=== PATIENT | female | born 1990 | race African-American/Black ===

== ENCOUNTER 2016-04-27 20:58 | Emergency (ER) | payer MEDICAID ==
--- NOTE | 2016-04-28 00:18 | ER Document Report ---
ED Skin Rash/Insect Bite/Abscs - General Mode of Arrival: Ambulatory Information source: Patient TRAVEL OUTSIDE OF THE [place] IN LAST 30 DAYS: No - HPI Patient complains to provider of: Possible insect bite Onset: Yesterday - General Chief Complaint: Insect Bite Stated Complaint: insect bite Notes: Patient is a 25 year old female who presents to the emergency department complaining of an insect bite on her upper right arm. Patient states that she woke up yesterday morning and noticed she was lightheaded and there was a small bite, throughout the day the area became red and swollen and patient became nauseated. Patient reports that she does notice spiders around her home but that they usually because she sprays insecticide which she has not done recently. Patient has had a tetanus shot within the last year. ([facility]) - Related Data Allergies/Adverse Reactions: No Known Allergies Allergy (Verified 02/12/16 12:26) Past Medical History - General Information source: Patient - Social History Smoking Status: Unknown if Ever Smoked Family History: Reviewed & Not Pertinent, Hypertension, Malignancy - Immunizations Immunizations up to date: Yes Hx Diphtheria, Pertussis, Tetanus Vaccination: Yes - 2015 Review of Systems - Review of Systems Constitutional: No symptoms reported EENT: No symptoms reported Cardiovascular: See HPI, Lightheaded Respiratory: No symptoms reported Gastrointestinal: See HPI, Nausea Genitourinary: No symptoms reported Female Genitourinary: No symptoms reported Musculoskeletal: No symptoms reported Skin: See HPI, Other - bite with swelling and redness Hematologic/Lymphatic: No symptoms reported Neurological/Psychological: No symptoms reported -: Yes All other systems reviewed and negative Physical Exam - Vital signs Interpretation: Normal - General General appearance: Appears well, Alert - HEENT Head: Normocephalic, Atraumatic - Respiratory Respiratory status: No respiratory distress - Cardiovascular Rhythm: Regular Pulses: Normal: Radial - Extremities General lower extremity: Normal inspection, Nontender, Normal color, Normal ROM , Normal temperature Arm: Other - Circular localized area of induration and errythema on upper right arm, no crepitance or necrosis, no absess or deformity. Good perfusion and good pulses. - Neurological Neuro grossly intact: Yes Cognition: Normal Orientation: AAOx4 [place] Coma Scale Eye Opening: Spontaneous [place] Coma Scale Verbal: Oriented Shannan Coma Scale Motor: Obeys Commands [place] Coma Scale Total: 15 Speech: Normal - Psychological Associated symptoms: Normal affect, Normal mood Course - Re-evaluation Re-evalutation: 04/28/16 00:27 I personally performed the services described in the documentation, reviewed and edited the documentation which was dictated to my scribe in my presence, and it accurately records my words and actions. Tanisha presents to the emergency Department chief complaint woke up this morning feeling a little bit sick and noticed a red indurated spot on her right arm. She thought some better but she's not sure she has no idea. She has no systemic complaints of fevers chills nausea or vomiting. She has a localized indurated red area in the right upper humeral region which is not secondarily infected at his or necrosis. Going to start her on clindamycin and 2 day recheck with the clinic and discussed reasons for ED return sooner (DIVINA FISHER) Scribe Documentation - Scribe Written by Julia:: julia Florez, 04/28/16, 0043 acting as scribe for :: Scout
[2016-04-28] MEDS ORDERED: CLINDAMYCIN HCL 150 MG CAPSULE PO ONE (00:26)
[2016-04-28] MEDS ORDERED: ONDANSETRON 4 MG TAB.RAPDIS PO ONE (00:26)
[2016-04-28 01:48] VITALS: BP 117/72
--- NOTE | 2016-05-13 01:04 | ER Document Report ---
Doctor's Note Notes: 05/13/16 01:04 diagnosis 1. localized reaction to insect bite 2. cephalgia resolved
== END 2016-04-28 01:00 | disposition home or self-care (01) ==
LOC: ER 20:58
DX: S40.861A Insect bite (nonvenomous) of right upper arm, initial encounter (principal); W57.XXXA Bitten or stung by nonvenomous insect and other nonvenomous arthropods, initial encounter; R51 Headache; R11.0 Nausea; R42 Dizziness and giddiness
CPT/HCPCS: 99282; J3490; S0119

== ENCOUNTER 2016-04-28 16:41 | Emergency (ER) | payer MEDICAID ==
[2016-04-28 17:30] VITALS: BP 161/72
--- NOTE | 2016-04-28 18:22 | ER Document Report ---
ED Medical Screen (RME) - General Chief Complaint: Skin Problem Stated Complaint: POSSIBLE BITE Notes: 25 yo female c/o insect bite to right upper arm x 2 days. seen in ED yesterday , started on clindaymcin. taking meds as prescribed but swelling and redness has increased. upper arm into axilla painful. no fever. vomited x 1 yesterday TRAVEL OUTSIDE OF THE [place] IN LAST 30 DAYS: No - Related Data Allergies/Adverse Reactions: No Known Allergies Allergy (Verified 04/28/16 17:26) Past Medical History - Social History Chew tobacco use (# tins/day): No Frequency of alcohol use: None Drug Abuse: None - Immunizations Immunizations up to date: Yes Hx Diphtheria, Pertussis, Tetanus Vaccination: Yes - 2015 Physical Exam - Vital signs Vitals: Temp Pulse Resp BP Pulse Ox 98.0 F 71 16 161/72 H 100 04/28/16 17:28 04/28/16 17:28 04/28/16 17:28 04/28/16 17:28 04/28/16 17:28 Course - Vital Signs Vital signs: Temp Pulse Resp BP Pulse Ox 98.0 F 71 16 161/72 H 100 04/28/16 17:28 04/28/16 17:28 04/28/16 17:28 04/28/16 17:28 04/28/16 17:28
[2016-04-28 19:02] LABS: ABSOLUTE EOSINOPHILS # (AUTO) 0.2 10^3/uL (0.0-0.6); ABSOLUTE LYMPHOCYTES (AUTO) 2.7 10^3/uL (0.5-4.7); ABSOLUTE MONOCYTES (AUTO) 0.5 10^3/uL (0.1-1.4); ABSOLUTE NEUT (AUTO) 2.8 10^3/uL (1.7-8.2); BASOPHILS % (AUTO) 0.2 % (0-2); EOSINOPHILS % (AUTO) 3.7 % (0-6); HEMOGLOBIN 12.4 g/dL (12.0-15.5); HGB HCT DIFFERENCE -0.8; LYMPHOCYTES % (AUTO) 43.7 % (13-45); MEAN CORPUSCULAR HEMOGLOBIN 28.7 pg (27.0-33.4); MEAN CORPUSCULAR HGB CONC 32.8 g/dL (32.0-36.0); MEAN CORPUSCULAR VOLUME 88 fl (80-97); MONOCYTES % (AUTO) 7.5 % (3-13); RED BLOOD COUNT 4.33 10^6/uL (3.72-5.28); RED CELL DISTRIBUTION WIDTH 15.2 % (11.5-14.0); SEGMENTED NEUTROPHILS % (AUTO) 44.9 % (42-78); WHITE BLOOD COUNT 6.1 10^3/uL (4.0-10.5)
[2016-04-28] MEDS ORDERED: HYDROMORPHONE HCL INJ/PF 2 MG/ML AMPULE IM ONE (19:51)
[2016-04-28] MEDS ORDERED: CEFTRIAXONE INJ 1000 MG VIAL IM ONE (20:04)
[2016-04-28] MEDS ORDERED: SULFAMETHOXAZOLE/TRIMETHOPRIM 800-160 MG TABLET PO ONE (20:05)
[2016-04-28] MEDS ORDERED: HYDROCODONE/ACETAMINOPHEN 5-325 MG 6 TAB/DSPK PO PRN (20:06)
--- NOTE | 2016-04-28 20:07 | ER Document Report ---
ED General - General Chief Complaint: Skin Problem Stated Complaint: POSSIBLE BITE Notes: Patient is a 25-year-old female without past medical history who presents for increasing cellulitis of the right upper extremity. Was seen in the emergency department yesterday for this concern and discharged home on clindamycin. States that despite taking this antibiotic as directed she has not had any improvement of the rash and thinks that she's actually had some worsening. She denies any associated constitutional symptoms or fever. Does describe the pain as a constant, burning pain. Touching the area worsens the pain. She has not tried anything to improve the pain. She has not seen her primary care physician. She denies any history of similar symptoms in the past. TRAVEL OUTSIDE OF THE [place] IN LAST 30 DAYS: No - Related Data Allergies/Adverse Reactions: No Known Allergies Allergy (Verified 04/28/16 17:26) Past Medical History - General Information source: Patient - Social History Smoking Status: Never Smoker Chew tobacco use (# tins/day): No Frequency of alcohol use: None Drug Abuse: None Lives with: Spouse/Significant other Family History: Reviewed & Not Pertinent, Hypertension, Malignancy Patient has suicidal ideation: No Patient has homicidal ideation: No - Immunizations Immunizations up to date: Yes Hx Diphtheria, Pertussis, Tetanus Vaccination: Yes - 2016 Review of Systems - Review of Systems Notes: Constitutional: Negative for fever. HENT: Negative for sore throat. Eyes: Negative for visual changes. Cardiovascular: Negative for chest pain. Respiratory: Negative for shortness of breath. Gastrointestinal: Negative for abdominal pain, vomiting or diarrhea. Genitourinary: Negative for dysuria. Musculoskeletal: Negative for back pain. Skin: Positive for rash. Neurological: Negative for headaches, weakness or numbness. 10 point ROS negative except as marked above and in HPI. Physical Exam - Vital signs Vitals: Temp Pulse Resp BP Pulse Ox 98.0 F 71 16 161/72 H 100 04/28/16 17:28 04/28/16 17:28 04/28/16 17:28 04/28/16 17:28 04/28/16 17:28 Interpretation: Hypertensive Notes: PHYSICAL EXAMINATION: GENERAL: Well-appearing, well-nourished and in no acute distress. HEAD: Atraumatic, normocephalic. EYES: Pupils equal round and reactive to light, extraocular movements intact, sclera anicteric, conjunctiva are normal. ENT: nares patent, oropharynx clear without exudates. Moist mucous membranes. NECK: Normal range of motion, supple without lymphadenopathy LUNGS: Breath sounds clear to auscultation bilaterally and equal. No wheezes rales or rhonchi. HEART: Regular rate and rhythm without murmurs ABDOMEN: Soft, nontender, normoactive bowel sounds. No guarding, no rebound. No masses appreciated. EXTREMITIES: Normal range of motion, no pitting or edema. No cyanosis. NEUROLOGICAL: No focal neurological deficits. Moves all extremities spontaneously and on command. PSYCH: Normal mood, normal affect. SKIN: Warm, Dry, normal turgor, there is a 4 x 5 area of raised erythema on the right deltoid, painful to palpation Course - Re-evaluation Re-evalutation: 04/29/16 03:53 Patient presents with symptoms most consistent with an acute cellulitis. Vitals within normal limits. Patient does not meet sepsis criteria is overall very well in appearance. She'll have Bactrim added to her clindamycin coverage improved coverage for MRSA. A bedside ultrasound does not demonstrate any evidence of fluid collection in my exam does not reveal any area of fluctuance that would be amenable to incision for drainage. At this time will discharge with return precautions and follow-up recommendations. Verbal discharge instructions given a the bedside and opportunity for questions given. Medication warnings reviewed. Patient is in agreement with this plan and has verbalized understanding of return precautions and the need for primary care follow-up in the next 24-72 hours. - Vital Signs Vital signs: Temp Pulse Resp BP Pulse Ox 98.5 F 53 L 16 161/72 H 98 04/28/16 21:26 04/28/16 21:26 04/28/16 21:26 04/28/16 17:28 04/28/16 21:26 - Laboratory Result Diagrams: 04/28/16 18:30 Laboratory results interpreted by me: 04/28/16 18:30 RDW 15.2 H Discharge - Discharge Clinical Impression: Cellulitis of arm, right Condition: Good Disposition: HOME, SELF-CARE Additional Instructions: The rash is likely due to infection of your skin. You need to take the antibiotics as prescribed (continue to take the clindamycin and add bactrim as prescribed today). Do not stop even if the rash goes away until you have completed all the antibiotics. The area of redness was traced out here in the emergency department with a marking pen. You need to return to emergency department if the redness spreads outside of this area by more than 2 cm in any direction. You should also return if you develop fevers with temperature greater than 101, persistent vomiting, worsening pain, or have any other symptoms that are concerning to you. Prescriptions: Oxycodone HCl/Acetaminophen [Percocet 5-325 mg Tablet] 1 - 2 tab PO Q4H PRN #15 tablet PRN Reason: Sulfamethoxazole/Trimethoprim [Bactrim Ds Tablet] 1 each PO BID #20 tablet Forms: Return to Work, Elevated Blood Pressure
== END 2016-04-28 21:00 | disposition home or self-care (01) ==
LOC: ER 16:41
DX: L03.113 Cellulitis of right upper limb (principal)
CPT/HCPCS: 99283; 96372; 36415; 85025; J1170; J0696; J3490

== ENCOUNTER 2016-05-11 21:19 | Emergency (ER) | payer MEDICAID ==
[2016-05-11] MEDS ORDERED: OXYCODONE-ACETAMINOPHEN 5-325 MG TABLET PO ONE (21:35)
--- NOTE | 2016-05-11 21:35 | ER Document Report ---
ED Medical Screen (RME) - General Stated Complaint: ARM PAIN AND SWELLING RIGHT Mode of Arrival: Ambulatory Information source: Patient Notes: Patient complains of right upper arm swelling and redness started today. Patient does complain of pruritus. Patient reports having a similar episode in a different location about 2 weeks ago. hx: None I have greeted and performed a rapid initial assessment of this patient. A comprehensive ED assessment and evaluation of the patient, analysis of test results and completion of the medical decision making process will be conducted by additional ED providers. TRAVEL OUTSIDE OF THE [place] IN LAST 30 DAYS: No - Related Data Allergies/Adverse Reactions: No Known Allergies Allergy (Verified 04/28/16 17:26) Past Medical History - Immunizations Immunizations up to date: Yes Hx Diphtheria, Pertussis, Tetanus Vaccination: Yes - 2015 Physical Exam - Vital signs Vitals: Temp Pulse Resp BP Pulse Ox 98.5 F 76 18 141/90 H 98 05/11/16 21:30 05/11/16 21:30 05/11/16 21:30 05/11/16 21:30 05/11/16 21:30 - Skin Skin irregularity: Erythema - Right upper arm redness Irregularity with: Swelling, Tenderness, Warmth Course - Vital Signs Vital signs: Temp Pulse Resp BP Pulse Ox 98.5 F 76 18 141/90 H 98 05/11/16 21:30 05/11/16 21:30 05/11/16 21:30 05/11/16 21:30 05/11/16 21:30
[2016-05-11] MEDS ORDERED: SULFAMETHOXAZOLE/TRIMETHOPRIM 800-160 MG TABLET PO ONE (23:39)
[2016-05-11] MEDS ORDERED: DOXYCYCLINE HYCLATE 100 MG TABLET PO ONE (23:39)
[2016-05-11] MEDS ORDERED: DIPHENHYDRAMINE HCL 50 MG/ML VIAL IM ONE (23:39)
[2016-05-11] MEDS ORDERED: HYDROCODONE/ACETAMINOPHEN 5-325 MG 6 TAB/DSPK PO PRN (23:39)
--- NOTE | 2016-05-12 | ER Document Report ---
ED Extremity Problem, Upper - General Chief Complaint: Arm Pain Stated Complaint: ARM PAIN AND SWELLING RIGHT Mode of Arrival: Ambulatory Notes: Patient is a 25-year-old female that comes emergency department for chief complaint of pain in her right arm, pain is in the upper part of her arm, patient states that she woke up with the pain today, she states she finished antibiotics couple of days ago for almost the same thing, she states that areas of she and also painful. She denies any bites or wounds to the area. She states she was told she is being treated for cellulitis. She does not have diabetes, no history of MRSA. TRAVEL OUTSIDE OF THE [place] IN LAST 30 DAYS: No - Related Data Allergies/Adverse Reactions: No Known Allergies Allergy (Verified 04/28/16 17:26) Past Medical History - General Information source: Patient - Social History Smoking Status: Never Smoker Frequency of alcohol use: None Drug Abuse: None Lives with: Family Family History: Reviewed & Not Pertinent, Hypertension, Malignancy Patient has suicidal ideation: No Patient has homicidal ideation: No - Medical History Medical History: Negative Renal/ Medical History: Denies: Hx Peritoneal Dialysis Surgical Hx: Negative - Immunizations Immunizations up to date: Yes Hx Diphtheria, Pertussis, Tetanus Vaccination: Yes - 2016 Review of Systems - Review of Systems Constitutional: No symptoms reported EENT: No symptoms reported Cardiovascular: No symptoms reported Respiratory: No symptoms reported Gastrointestinal: No symptoms reported Genitourinary: No symptoms reported Female Genitourinary: No symptoms reported Musculoskeletal: No symptoms reported Skin: See HPI Hematologic/Lymphatic: No symptoms reported Neurological/Psychological: No symptoms reported Physical Exam - Vital signs Vitals: Temp Pulse Resp BP Pulse Ox 98.5 F 76 18 141/90 H 98 05/11/16 21:30 05/11/16 21:30 05/11/16 21:30 05/11/16 21:30 05/11/16 21:30 Interpretation: Normal - General General appearance: Appears well, Alert In distress: None - HEENT Head: Normocephalic, Atraumatic Eyes: Normal Conjunctiva: Normal Extraocular movements intact: Yes Eyelashes: Normal Pupils: PERRL Sinus: Normal Nasal: Normal Mouth/Lips: Normal Mucous membranes: Normal Pharynx: Normal Neck: Normal - Respiratory Respiratory status: No respiratory distress Chest status: Nontender Breath sounds: Normal. No: Decreased air movement, Nonproductive cough, Wheezing Chest palpation: Normal - Cardiovascular Rhythm: Regular. No: Tachycardia Heart sounds: Normal auscultation, S1 appreciated, S2 appreciated Murmur: No - Abdominal Inspection: Normal Distension: No distension Bowel sounds: Normal Tenderness: Nontender. No: Tender, Guarding - Back Back: Normal, Nontender. No: Tender, CVA tenderness - Extremities General upper extremity: Other - There is an oval-shaped area of erythema at the right upper arm and biceps area, warm, tender, no induration or fluctuance, no streaking away from the site. Normal upper extremity exam otherwise. General lower extremity: Normal inspection, Nontender, Normal ROM, Normal strength - Neurological Neuro grossly intact: Yes Cognition: Normal Orientation: AAOx4 Shannan Coma Scale Eye Opening: Spontaneous [place] Coma Scale Verbal: Oriented Shannan Coma Scale Motor: Obeys Commands Shannan Coma Scale Total: 15 Speech: Normal Cranial nerves: Normal Cerebellar coordination: Normal Motor strength normal: LUE, RUE, LLE, RLE Additional motor exam normals: Equal infection control practitioner Sensory: Normal - Psychological Associated symptoms: Normal affect, Normal mood - Skin Skin Temperature: Warm Skin Moisture: Dry Skin Color: Normal Course - Re-evaluation Re-evalutation: There is an erythematous and tender area of the right upper biceps area, no induration or fluctuance, no streaking away from the site, no fever, no obvious wounds. Symptoms did resolve with antibiotics previously. Dr. Collazo evaluated the rash at bedside as well. Recommends antibiotics and dermatology followup. Patient given Benadryl because of the itching, will be placed on Bactrim and doxycycline, refer to dermatology, discussed return precautions including spreading, swelling, fever, etc. Patient states understanding and agreement. - Vital Signs Vital signs: Temp Pulse Resp BP Pulse Ox 98.8 F 63 15 100/67 100 05/12/16 00:39 05/12/16 00:39 05/12/16 00:39 05/12/16 00:39 05/12/16 00:39 Discharge - Discharge Clinical Impression: Right arm pain Cellulitis Qualifiers: Site of cellulitis: extremity Site of cellulitis of extremity: upper extremity Laterality: right Qualified Code(s): L03.113 - Cellulitis of right upper limb Condition: Stable Disposition: HOME, SELF-CARE Additional Instructions: The examination does indicate an infection again, taking both the Bactrim and doxycycline antibiotics. Take the Zyrtec or take [id number] Benadryl for itching. Follow-up with dermatology for further evaluation and management. Return immediately to the emergency department for any concerning or worsening symptoms including fever, spreading redness, increased swelling, or any other concerning symptoms. Prescriptions: Doxycycline Hyclate 100 mg PO BID #14 capsule Hydrocodone/Acetaminophen [[place] 5-325 Tablet] 1 - 2 each PO Q4H PRN #10 tablet PRN Reason: Sulfamethoxazole/Trimethoprim [Bactrim Ds Tablet] 1 each PO BID #14 tablet Referrals: LUANA MALCOLM DO [ACTIVE STAFF] - Follow up in 1 week
[2016-05-12 00:41] VITALS: BP 100/67
== END 2016-05-12 00:39 | disposition home or self-care (01) ==
LOC: ER 21:19
DX: L03.113 Cellulitis of right upper limb (principal); M79.621 Pain in right upper arm; L29.9 Pruritus, unspecified
CPT/HCPCS: 99283; 96372; J1200; J3490 ×2

== ENCOUNTER → 2016-11-22 | Outpatient (CLI) | payer SELFPAY ==
--- NOTE | 2016-11-22 17:01 | RADIOLOGY REPORT (SQ) ---
EXAM DESCRIPTION: U/S OB 14+ TRNABD 1GES W/O DOP COMPLETED DATE/TIME: 11/22/2016 4:50 pm REASON FOR STUDY: ENCOUNTER FOR SUPERVISION OF OTHER NORMAL , SECOND TRIMESTER Z34.82 ENCO UNTER FOR SUPRVSN OF NORMAL , SECOND TRI COMPARISON: None. TECHNIQUE: Static and Dynamic grayscale imaging performed of gravid uterus using transabdominal appr oach. Additional selected color Doppler and spectral images recorded. All stored on PACS. LIMITATIONS: None. FINDINGS: EGA: 20 week 6 day. BLAIR: 04/05/2017. EFW: 389 g. PERCENTILE: Not applicable. BENJAMÍN: Largest visualized pocket 3.7 cm. PLACENTA: Posterior. PRESENTATION: Cephalic. ANATOMY: HEART RATE: 141 beats per minute. FOUR CHAMBER HEART: Visualized. THREE VESSEL CORD: Yes. CORD INSERTION: Visualized. KIDNEYS AND BLADDER: Visualized. Appear normal. STOMACH: Visualized. Appears normal. SPINE: Normal as visualized. BRAIN AND LATERAL VENTRICLES: Visualized. Appear normal. OTHER: No other significant finding. MATERNAL ADNEXA: Maternal ovaries not visualized. CERVICAL LENGTH: 4.3 cm. Closed. OTHER: No other significant finding. IMPRESSION: LIVING INTRAUTERINE . ESTIMATED GESTATIONAL AGE 20 WEEK 6 DAY. NO VISUALIZED ANOMALIES. Trimester of : Second trimester - 13 weeks 1 day to 27 weeks 6 days. TECHNICAL DOCUMENTATION: JOB ID: [id number] [employer]- All Rights Reserved
== END ==
LOC: RAD 15:41
PROVIDERS: ATTEND Nurse Practitioner Women's Health
DX: Z34.82 Encounter for supervision of other normal pregnancy, second trimester (principal)
CPT/HCPCS: 76805

== ENCOUNTER 2016-12-15 00:28 | Emergency (ER) | payer SELFPAY ==
[2016-12-15 01:00] VITALS: BP 124/66
--- NOTE | 2016-12-15 02:46 | ER Document Report ---
ED General - General Chief Complaint: Pain Stated Complaint: FLANK/BACK PAIN Time Seen by Provider: 12/15/16 02:31 TRAVEL OUTSIDE OF THE [place] IN LAST 30 DAYS: No - HPI Notes: 26-year-old female G5 approximately 25 weeks gestation presents with pain in her right lower back for the last day. It is more positional and worse with movement. Tonight she tried to take a hot shower and felt pain radiate from her right upper lateral back down through her leg. It is brief and is resolved now. No dysuria hematuria. Denies any current abdominal discomfort, hematuria dysuria or other urinary symptoms. No contraction type discomfort. Pain nonradiating. There was no associated numbness or tingling with it. No anterior abdominal pain associated as well. - Related Data Allergies/Adverse Reactions: No Known Allergies Allergy (Verified 12/15/16 00:55) Past Medical History - Social History Smoking Status: Never Smoker Family History: Reviewed & Not Pertinent, Hypertension, Malignancy Endocrine Medical History: Denies: Hx Diabetes Mellitus Type 1, Hx Diabetes Mellitus Type 2 Renal/ Medical History: Denies: Hx Kidney Stones, Hx Peritoneal Dialysis - Immunizations Immunizations up to date: Yes Hx Diphtheria, Pertussis, Tetanus Vaccination: Yes - 2016 Review of Systems - Review of Systems -: Yes All other systems reviewed and negative Physical Exam - Vital signs Vitals: Temp Pulse Resp BP Pulse Ox 98.6 F 71 20 124/66 100 12/15/16 00:55 12/15/16 00:55 12/15/16 00:55 12/15/16 00:55 12/15/16 00:55 Interpretation: Normal - Notes Notes: GENERAL: VS as per nursing doc. Well-appearing, well-nourished and in no acute distress. HEAD: Atraumatic, normocephalic. EYES: Pupils equal round and reactive to light, extraocular movements intact, sclera anicteric, no conjunctival injection or discharge. ENT: Nares patent, oropharynx clear without exudates, moist mucous membranes. NECK: Normal range of motion, supple without lymphadenopathy. LUNGS: Breath sounds clear to auscultation bilaterally and equal. No wheezes rales or rhonchi. HEART: Regular rate and rhythm without murmurs. ABDOMEN: Soft, gravid, nontender to palpation. BACK: No CVA tenderness. Normal to inspection. Pain was at the top of the right iliac crest posteriorly but there is no pre-reproducibility or objective abnormality. EXTREMITIES: Normal range of motion, no calf tenderness, no edema. NEUROLOGICAL: Normal speech. Normal sensory and motor exams. No gross cerebellar abnormalities. PSYCH: Normal mood, normal affect. SKIN: Warm, dry, normal turgor, no lesions noted. Course - Re-evaluation Re-evalutation: 12/15/16 03:41 heart tones 154. Discussed with patient unclear etiology but some concern she should be developing sciatica type symptoms or other musculoskeletal cause. She has no abdominal symptoms so she is comfortable going home but understands warning signs to watch for.. - Vital Signs Vital signs: Temp Pulse Resp BP Pulse Ox 98.6 F 71 20 124/66 100 12/15/16 00:55 12/15/16 00:55 12/15/16 00:55 12/15/16 00:55 12/15/16 00:55 Discharge - Discharge Clinical Impression: Back pain Condition: Good Disposition: HOME, SELF-CARE Additional Instructions: Return for worsening, development of abdominal discomfort or other worsening symptoms.
[2016-12-15 03:07] LABS: APPEARANCE,URINE CLEAR; BILIRUBIN,URINE NEGATIVE (NEGATIVE); GLUCOSE, URINE NEGATIVE (NEGATIVE); KETONES,URINE NEGATIVE (NEGATIVE); LEUKOCYTE ESTERASE,URINE NEGATIVE (NEGATIVE); NITRITE,URINE NEGATIVE (NEGATIVE); PROTEIN,URINE NEGATIVE (NEGATIVE); UROBILINOGEN,URINE NEGATIVE mg/dL (<2.0)
== END 2016-12-15 03:49 | disposition home or self-care (01) ==
LOC: ER 00:28
DX: O99.89 Other specified diseases and conditions complicating pregnancy, childbirth and the puerperium (principal); M54.5 Low back pain; Z3A.00 Weeks of gestation of pregnancy not specified
CPT/HCPCS: 81001; 99284

== ENCOUNTER 2017-02-06 11:35 | Outpatient (CLI) | payer MEDICAID ==
[2017-02-06 12:31] LABS: URINE BARBITURATES SCREEN NEGATIVE; URINE METHADONE SCREEN NEGATIVE; URINE OPIATES LOW NEGATIVE; URINE PHENCYCLIDINE SCREEN NEGATIVE
[2017-02-06 12:35] LABS: APPEARANCE,URINE CLEAR; BILIRUBIN,URINE NEGATIVE (NEGATIVE); GLUCOSE, URINE NEGATIVE (NEGATIVE); KETONES,URINE NEGATIVE (NEGATIVE); LEUKOCYTE ESTERASE,URINE TRACE (NEGATIVE); NITRITE,URINE NEGATIVE (NEGATIVE); PROTEIN,URINE NEGATIVE (NEGATIVE); URINE SPECIFIC GRAVITY 1.009; UROBILINOGEN,URINE NEGATIVE mg/dL (<2.0)
--- NOTE | 2017-02-06 13:45 | RADIOLOGY REPORT (SQ) ---
EXAM DESCRIPTION: U/S OB LIMITED COMPLETED DATE/TIME: 02/06/2017 1:34 pm REASON FOR STUDY: cervical length COMPARISON: OB ultrasound 11/22/2016 (estimated due date from this exam 04/05/2017) TECHNIQUE: Limited transabdominal grayscale ultrasound for evaluation of specific requested obstetri stella parameters. LIMITATIONS: None. FINDINGS: CERVICAL LENGTH: 3.6 cm Closed. FHR: 150 beats per minute. PRESENTATION: Cephalic. OTHER: No other significant findings. IMPRESSION: LIMITED OBSTETRICAL ULTRASOUND WITH MEASURED PARAMETERS DELINEATED ABOVE. Trimester of : Third trimester - 28 weeks to delivery. TECHNICAL DOCUMENTATION: JOB ID: [id number] [employer]- All Rights Reserved
== END 2017-02-06 13:51 | disposition home or self-care (01) ==
LOC: LC 11:35
PROVIDERS: ATTEND Obstetrics & Gynecology
PROC: 4A1HXCZ Monitoring of Products of Conception, Cardiac Rate, External Approach (ICD-10-PCS; principal; 2017-02-06)
DX: O26.893 Other specified pregnancy related conditions, third trimester (principal); R10.2 Pelvic and perineal pain; Z3A.30 30 weeks gestation of pregnancy
CPT/HCPCS: 76815; 80307; 81001

== ENCOUNTER 2017-03-13 18:39 | Outpatient (CLI) | payer MEDICAID ==
[2017-03-13 19:19] LABS: APPEARANCE,URINE CLEAR; BILIRUBIN,URINE NEGATIVE (NEGATIVE); GLUCOSE, URINE NEGATIVE (NEGATIVE); KETONES,URINE NEGATIVE (NEGATIVE); LEUKOCYTE ESTERASE,URINE NEGATIVE (NEGATIVE); NITRITE,URINE NEGATIVE (NEGATIVE); PROTEIN,URINE NEGATIVE (NEGATIVE); URINE SPECIFIC GRAVITY 1.013; UROBILINOGEN,URINE NEGATIVE mg/dL (<2.0)
[2017-03-13 19:39] LABS: URINE BARBITURATES SCREEN NEGATIVE; URINE METHADONE SCREEN NEGATIVE; URINE OPIATES LOW NEGATIVE; URINE PHENCYCLIDINE SCREEN NEGATIVE
--- NOTE | 2017-03-13 20:51 | Non Stress Test Report ---
Non Stress Test Datetime Report Generated by CPN: 03/13/2017 20:50 DEMOGRAPHIC EGA NST: 35.4 INDICATION Indication for Study: Ordered by Provider MONITORING Monitor Explained: Monitor Explained; Test Explained; Patient Verbalized Understanding Time on Monitor: 03/13/2017 19:00 Time off Monitor: 03/13/2017 20:36 NST Duration: 96 NST INTERVENTIONS NST Interventions: PO Hydration BABY A: [id number] BABY A Movement : Present Contraction Frequency : x3 FHR Baseline : 135 Accelerations : 15X15 Decelerations : None Variability : Moderate 6-25bpm NST Review: Meets Criteria for Reactive NST NST Review and Verified By : Abbi Dario RN NST Results: Reactive NST REPORT Report Trigger: Send Report
== END 2017-03-13 20:47 | disposition home or self-care (01) ==
LOC: LC 18:39
PROVIDERS: ATTEND Obstetrics & Gynecology Gynecology
PROC: 4A1HXCZ Monitoring of Products of Conception, Cardiac Rate, External Approach (ICD-10-PCS; principal; 2017-03-13)
DX: O47.03 False labor before 37 completed weeks of gestation, third trimester (principal); Z3A.35 35 weeks gestation of pregnancy
CPT/HCPCS: 59025; 80307; 81005

== ENCOUNTER 2017-03-22 11:10 | Outpatient (CLI) | payer MEDICAID ==
[2017-03-22 11:41] LABS: APPEARANCE,URINE CLEAR; BILIRUBIN,URINE NEGATIVE (NEGATIVE); GLUCOSE, URINE NEGATIVE (NEGATIVE); KETONES,URINE NEGATIVE (NEGATIVE); LEUKOCYTE ESTERASE,URINE TRACE (NEGATIVE); NITRITE,URINE NEGATIVE (NEGATIVE); PROTEIN,URINE NEGATIVE (NEGATIVE); URINE SPECIFIC GRAVITY 1.004; UROBILINOGEN,URINE NEGATIVE mg/dL (<2.0)
[2017-03-22 12:04] LABS: URINE BARBITURATES SCREEN NEGATIVE; URINE METHADONE SCREEN NEGATIVE; URINE OPIATES LOW NEGATIVE; URINE PHENCYCLIDINE SCREEN NEGATIVE
--- NOTE | 2017-03-22 12:28 | Non Stress Test Report ---
Non Stress Test Datetime Report Generated by CPN: 03/22/2017 12:28 DEMOGRAPHIC EGA NST: 36.6 INDICATION Indication for Study: Decreased Movement MONITORING Time on Monitor: 03/22/2017 11:28 Time off Monitor: 03/22/2017 12:19 NST Duration: 51 NST INTERVENTIONS NST Interventions: PO Hydration; Reposition Patient Physician Notified NST: A.Groevr, CNM BABY A: [id number] BABY A Movement : Present Contraction Frequency : 0 FHR Baseline : 125 Accelerations : 15X15 Decelerations : None Variability : Moderate 6-25bpm NST Review: Meets Criteria for Reactive NST NST Review and Verified By : Sridhar Rendon RN NST Results: Reactive NST REPORT Report Trigger: Send Report
== END 2017-03-22 12:27 | disposition home or self-care (01) ==
LOC: LC 11:10
PROVIDERS: ATTEND Obstetrics & Gynecology
PROC: 4A1HXCZ Monitoring of Products of Conception, Cardiac Rate, External Approach (ICD-10-PCS; principal; 2017-03-22)
DX: O36.8130 Decreased fetal movements, third trimester, not applicable or unspecified (principal); Z3A.36 36 weeks gestation of pregnancy
CPT/HCPCS: 59025; 80307; 81001

== ENCOUNTER 2017-03-27 22:05 | Outpatient (CLI) | payer MEDICAID ==
[2017-03-27 23:05] LABS: APPEARANCE,URINE CLEAR; BILIRUBIN,URINE NEGATIVE (NEGATIVE); GLUCOSE, URINE NEGATIVE (NEGATIVE); KETONES,URINE NEGATIVE (NEGATIVE); LEUKOCYTE ESTERASE,URINE NEGATIVE (NEGATIVE); NITRITE,URINE NEGATIVE (NEGATIVE); PROTEIN,URINE NEGATIVE (NEGATIVE); URINE SPECIFIC GRAVITY 1.003; UROBILINOGEN,URINE NEGATIVE mg/dL (<2.0)
[2017-03-27 23:06] LABS: AMNISURE (ROM) NEGATIVE (NEGATIVE)
[2017-03-27 23:26] LABS: URINE METHADONE SCREEN NEGATIVE; URINE OPIATES LOW NEGATIVE; URINE PHENCYCLIDINE SCREEN NEGATIVE
[2017-03-27 23:39] LABS: URINE BARBITURATES SCREEN UNCONFIRMED POSITIVE
[2017-03-27] MEDS ORDERED: HYDROXYZINE PAMOATE 50 MG CAPSULE PO ONE (23:49)
[2017-03-27] MEDS ORDERED: HYDROXYZINE PAMOATE 50 MG CAPSULE ONE (23:55)
== END 2017-03-28 00:18 | disposition home or self-care (01) ==
LOC: LC 22:05
PROVIDERS: ATTEND Student in an Organized Health Care Education/Training Program
PROC: 4A1HXCZ Monitoring of Products of Conception, Cardiac Rate, External Approach (ICD-10-PCS; principal; 2017-03-27)
DX: O47.1 False labor at or after 37 completed weeks of gestation (principal); O76 Abnormality in fetal heart rate and rhythm complicating labor and delivery; M54.30 Sciatica, unspecified side; Z3A.37 37 weeks gestation of pregnancy
CPT/HCPCS: 59025; 84112; 81005; 80307; J3490

== ENCOUNTER 2017-03-29 08:29 | Inpatient (IN) | payer MEDICAID ==
--- NOTE | 2017-03-29 08:32 | Non Stress Test Report ---
Non Stress Test Datetime Report Generated by CPN: 03/29/2017 08:32 DEMOGRAPHIC Test Number: 5 EGA NST: 37.4 INDICATION Indication for Study: Ordered by Provider; Other Indication for Study (NST) Other: lc VITAL SIGNS Temperature - NST: 98.2 Pulse - NST: 86 RESP - NST: 16 NBPSYS NST: 121 NBPDIA NST: 88 URINE RESULTS Urine Protein, NST: Negative Urine Ketones - NST: Negative Urine Glucose - NST: Negative Urine Blood - NST: Negative MONITORING Monitor Explained: Monitor Explained; Test Explained; Patient Verbalized Understanding Time on Monitor: 03/27/2017 22:39 Time off Monitor: 03/28/2017 00:00 NST Duration: 81 NST INTERVENTIONS NST Interventions: PO Hydration Physician Notified NST: Dr Simon BABY A: [id number] BABY A Movement : Present Contraction Frequency : rare ui FHR Baseline : 130 Accelerations : 15X15 Decelerations : Variable Variability : Moderate 6-25bpm NST Review and Verified By : B Hawkins, RN NST Results: Reactive NST REPORT Report Trigger: Send Report
[2017-03-29] MEDS ORDERED: RINGERS SOLUTION,LACTATED 1,000 ML IV PRN (08:54)
[2017-03-29] MEDS ORDERED: PENICILLIN G-K 5 MILLION UNIT VIAL ONE (09:09)
[2017-03-29] MEDS ORDERED: PENICILLIN G POTASSIUM 5,000,000 UNIT in DEXTROSE 5%-WATER 100 ML IV ONE (09:09)
[2017-03-29] MEDS ORDERED: LIDOCAINE 1% INJ-PF (10 MG/ML) 30 ML SDV ONE (09:26)
[2017-03-29] MEDS ORDERED: OXYTOCIN/NORMAL SALINE 20 UNIT/1,000 ML RTUINJ ONE (09:26)
[2017-03-29] MEDS ORDERED: MISOPROSTOL 0.2 MG TABLET ONE (09:26)
[2017-03-29 09:59] LABS: ABSOLUTE LYMPHOCYTES (AUTO) 2.1 10^3/uL (0.5-4.7); ABSOLUTE MONOCYTES (AUTO) 0.6 10^3/uL (0.1-1.4); ABSOLUTE NEUT (AUTO) 4.7 10^3/uL (1.7-8.2); BASOPHILS % (AUTO) 0.4 % (0-2); EOSINOPHILS % (AUTO) 0.7 % (0-6); HEMATOCRIT 28.5 % (36.0-47.0); HEMOGLOBIN 9.5 g/dL (12.0-15.5); LYMPHOCYTES % (AUTO) 27.6 % (13-45); MEAN CORPUSCULAR HEMOGLOBIN 26.6 pg (27.0-33.4); MEAN CORPUSCULAR HGB CONC 33.3 g/dL (32.0-36.0); MEAN CORPUSCULAR VOLUME 80 fl (80-97); MONOCYTES % (AUTO) 8.5 % (3-13); RED BLOOD COUNT 3.57 10^6/uL (3.72-5.28); RED CELL DISTRIBUTION WIDTH 15.9 % (11.5-14.0); SEGMENTED NEUTROPHILS % (AUTO) 62.8 % (42-78); WHITE BLOOD COUNT 7.5 10^3/uL (4.0-10.5)
--- NOTE | 2017-03-29 09:59 | L&D Progress Notes ---
PROGRESS NOTES Datetime Report Generated by CPN: 03/29/2017 09:58 PROGRESS NOTE Impression: Normal Progression of Labor Procedures: Artificial ROM Plan: Continue Present Management Informed Consent Obtained: Vaginal Delivery Vital Signs : Reviewed Comment: AROM, clear fluid, difficult to examine, 8-9/vtx/-1, pt sursing and moving around in bed, asked family to take sick child out of room, coughing and has fever, family upset, Cat 1 strip with variables, irreg uc's VAGINAL EXAM Dilatation: 8 Station: -1 MEMBRANES Amniotic Fluid Color: Clear FETUS A FHR - Baseline: 120 Monitoring: External US Variability: Moderate 6-25bpm Accelerations: 15X15 Decelerations: Variable : 37.6 SIGNATURE SIGNATURE: [id number];[id number] SIGNATURE: ,[id number] SIGNATURE: ,[id number] SIGNATURE: ,[id number] SIGNATURE: ,[id number] SIGNATURE: ,[id number] Assignment: Yareli Colón MD Signature: with User ID: [email or web address] : with User ID: [email or web address]
[2017-03-29 10:15] LABS: APPEARANCE,URINE CLOUDY; BILIRUBIN,URINE NEGATIVE (NEGATIVE); GLUCOSE, URINE NEGATIVE (NEGATIVE); KETONES,URINE NEGATIVE (NEGATIVE); LEUKOCYTE ESTERASE,URINE LARGE (NEGATIVE); NITRITE,URINE NEGATIVE (NEGATIVE); PROTEIN,URINE NEGATIVE (NEGATIVE); URINE SPECIFIC GRAVITY 1.011; UROBILINOGEN,URINE NEGATIVE mg/dL (<2.0)
[2017-03-29] MEDS ORDERED: BENZOCAINE/MENTHOL AEROSOL SPRAY 56 ML TOP PRN (10:32)
[2017-03-29] MEDS ORDERED: PROMETHAZINE HCL 25 MG SUPP.RECT PR PRN (10:32)
[2017-03-29] MEDS ORDERED: DIPH/PERTUSS(ACELL)/TETANUS VAC/PF 0.5 ML SYR (>=10YO) IM PRN (10:32)
[2017-03-29] MEDS ORDERED: OXYTOCIN/NORMAL SALINE 20 UNIT/1,000 ML RTUINJ IV PRN (10:32)
[2017-03-29] MEDS ORDERED: PSEUDOEPHEDRINE HCL 30 MG TABLET PO PRN (10:32)
[2017-03-29] MEDS ORDERED: MAGNESIUM HYDROXIDE SUSP 30 ML UDCUP PO PRN (10:32)
[2017-03-29] MEDS ORDERED: ACETAMINOPHEN WITH CODEINE #3 TABLET PO PRN (10:32)
[2017-03-29] MEDS ORDERED: PROMETHAZINE HCL INJ 25 MG/1 ML VIAL IV PRN (10:32)
[2017-03-29] MEDS ORDERED: GLYCERIN/WITCH HAZEL LEAF 1 EACH MED..PAD TP PRN (10:32)
[2017-03-29] MEDS ORDERED: DIBUCAINE 1% OINTMENT 28 GM TP PRN (10:32)
[2017-03-29] MEDS ORDERED: ACETAMINOPHEN 650 MG SUPP.RECT PR PRN (10:32)
[2017-03-29] MEDS ORDERED: MEASLES,MUMPS&RUBELLA VACC/PF 0.5 ML VIAL SUBCUT PRN (10:32)
[2017-03-29] MEDS ORDERED: DIPHENHYDRAMINE HCL 25 MG CAPSULE PO PRN (10:32)
[2017-03-29] MEDS ORDERED: NA PHOS,M-B/NA PHOS,DI-BA (ADULT) 133 ML ENEMA PR PRN (10:32)
[2017-03-29] MEDS ORDERED: PROMETHAZINE HCL 25 MG TABLET PO PRN (10:32)
[2017-03-29] MEDS ORDERED: MISOPROSTOL 0.2 MG TABLET PR PRN (10:32)
[2017-03-29] MEDS ORDERED: OXYCODONE-ACETAMINOPHEN 5-325 MG TABLET ONE (10:37)
[2017-03-29] MEDS ORDERED: OXYCODONE-ACETAMINOPHEN 5-325 MG TABLET PO ONE (11:00)
[2017-03-29 11:02] LABS: ADD HIVPANEL? NO; HIV (1 AND 2) ANTIBODY NEGATIVE (NEGATIVE)
--- NOTE | 2017-03-29 11:44 | Delivery Summary ---
Del Sum A-C Datetime Report Generated by CPN: 03/29/2017 11:43 DELIVERY PERSONNEL DELIVERY PERSONNEL: [id number] Delivery Doctor:: She Garcia CNM Nurse High Pressure Operator Certified:: She Garcia CNM Labor and Delivery Nurse:: Khadijah Castellon RNcotton weigher operator Nurse:: MAHESH Vallejo Plier Worker:: Khadijah Castellon RN Nursery Nurse:: Margoth Hopkins RN Environmental Technician/ELECTRIC GAS APPLIANCES DEMONSTRATOR: Joelle Ocampo, ELECTRIC GAS APPLIANCES DEMONSTRATOR II MATERNAL INFORMATION Delivery Anesthesia: None Medications After Delivery: Pitocin Drip 20 Units/1000ml NSS Estimated Blood Loss (ml): 250 Maternal Complications: Precipitous Labor (<3hrs) Provider Comments: Having decelerations, turned to left side, FSE applied, thick rim reduced, started pushing, Dr. Colón notified of decelerations. viable male from OA to CHIQUITA over intact perineum, tight nuchal cord unable to reduce until after delivery. Baby placed on mothers abd, cord clamped and cut by dad. Nursery in attendance for delivery. Intact perieum, spont delivery of grossly nl intact placenta, 3 VC, EBL 200 cc, Cytotec 600 and IV Pitocin and massage. Baby and mom in recovery in stable condition. Mother out of control during pushng and delivery LABOR SUMMARY EDC: 04/13/2017 00:00 No. Babies in Womb: 1 Attempted: No Labor Anesthesia: None LABOR INFORMATION Reason for Induction: Not Applicable Onset of Labor: 03/29/2017 06:45 Complete Dilatation: 03/29/2017 10:02 Oxytocin: N/A Group B Beta Strep: Negative Antibiotics # of Doses: 1 Antibiotics Time of Last Dose: 914 Name of Antibiotic Given: penicillin Steroids Given: None Reason Steroids Not Administered: Not Applicable MEMBRANES Membranes Rupture Method: Artificial Rupture of Membranes: 03/29/2017 09:49 Length of Rupture (hr): 0.43 Amniotic Fluid Color: Clear Amniotic Fluid Amount: Moderate Amniotic Fluid Odor: Normal STAGES OF LABOR Stage 1 hr: 3 Stage 1 min: 17 Stage 2 hr: 0 Stage 2 min: 13 Stage 3 hr: 0 Stage 3 min: 7 Total Time in Labor hr: 3 Total Time in Labor min: 37 VAGINAL DELIVERY Episiotomy: None Laceration #1: None Laceration Extension #1: N/A Laceration Repair: Not Applicable Sponge Count Correct: N/A CSECTION DELIVERY Primary Indication: N/A Secondary Indication: N/A CSection Incidence: N/A Labor: N/A Elective: N/A CSection Incision: N/A BABY A INFORMATION Delivery Date/Time: 03/29/2017 10:15 Method of Delivery: Vaginal Born in Route : No : N/A Forceps: N/A Vacuum Extraction: N/A Shoulder Dystocia : No PRESENTATION/POSITION BABY A Presentation: Cephalic Cephalic Presentation: Vertex Vertex Position: Right Occipital Anterior Breech Presentation: N/A PLACENTA INFORMATION BABY A Placenta Delivery Time : 03/29/2017 10:22 Placenta Method of Delivery: Spontaneous Placenta Status: Delivered SCORES BABY A Heart Rate 1 min: >100 bpm Resp Effort 1 min: Good Cry Reflex Irritability 1 min: Cough or Sneeze or Pulls Away Muscle Tone 1 min: Active Motion Color 1 min: Body [place], Extremities Blue Resuscitation Effort 1 min: Tactile Stimulation SCORE 1 MIN: 9 Heart Rate 5 min: >100 bpm Resp Effort 5 min: Good Cry Reflex Irritability 5 min: Cough or Sneeze or Pulls Away Muscle Tone 5 min: Active Motion Color 5 min: Body Standing [place], Extremities Blue SCORE 5 MIN: 9 INFORMATION BABY A Gestational Age at Delivery: 37.6 Gestational Status: Early Term- 37- 38.6 Weeks Outcome : Liveborn Infant Condition : Stable Sex: Male IDENTIFICATION BABY A Infant Verification Date/Time: 03/29/2017 10:39 ID Band Number: [id number] Mother's Name Verified: Yes Infant RN Verifying Infant: CValentin Tyler, RN/ D. Queta, RN WEIGHT/LENGTH BABY A Infant Birthweight (gm): 2780 Weight (lb): 6 Weight (oz): 2 Infant Length (in): 19.00 Infant Length (cm): 48.26 CORD INFORMATION BABY A No. Cord Vessels: 3 Nuchal Cord : Around Neck x1, Loose Cord Blood Taken: Yes-For Storage (Mom's Blood type +) Suction: Mouth; Nose ASSESSMENT BABY A Complications: Multiple Variable Decels Physical Findings at Delivery: Within Normal Limits Respirations: Appears Normal Skin to Skin: Yes Client Service Professional/ALS Called : Yes Care By: Phoebe Hopkins RN Transferred To: Remains with Mother
--- NOTE | 2017-03-29 12:33 | Admission Physical ---
Datetime Report Generated by CPN: 03/29/2017 12:32 CURRENT ADMISSION Hx Assessment: The History has been Updated Indication for Induction: Not Applicable Indication for Induction: Term, Intrauterine ; Active Labor; Intact Membranes; Obstetrical Complication Admit Impression- Other: Non compliant with care Admit Plan: Admit to Unit; Initiate Labor Protocol ALLERGIES Medication Allergies: No Medication Allergies: No Known Allergies (03/29/2017) Medication Allergies: No Known Allergies (03/28/2017) Medication Allergies: No Known Allergies (02/06/2017) Medication Allergies: No Known Allergies (12/15/2016) Medication Allergies: No Known Allergies (02/12/2016) Medication Allergies: No Known Allergies (11/28/2015) Medication Allergies: No Known Allergies (06/28/2015) Latex: No Latex Allergies Food Allergies: None Environmental Allergies: None OBSTETRICAL HISTORY EDC: 04/13/2017 00:00 : 5 Para: 4 Term: 2 : 1 SAB: 0 IAB: 0 Ectopic: 0 Livin Cesareans: 0 VBACs: 0 Multiple Births: 0 Gestational Diabetes: No Rh Sensitization: No Incompetent Cervix: No ELANA: No Infertility: No ART Treatment: No Uterine Anomaly: No IUGR: No Hx Previous C/S: No Macrosomia: No Hx Loss/Stillborn: No PIH: No Hx : No Placenta Previa/Abruption: No Depression/PP Depression: No PTL/PROM: No Post Hemorrhage: No Current Procedures: Ultrasound; NST Obstetrical History Comments: G1- 36wk G2- 37wk G3- 38wk G4- current SEE RECORDS Alcohol: No Marijuana : No Cocaine: No Other Illicit Drugs: No Cigarettes: Never Smoker. [id number] MEDICAL HISTORY Diabetes: No Blood Transfusion: No Pulmonary Disease (Asthma, TB): No Breast Disease: No Hypertension: No Strategic Partner Development Manager Surgery: No Heart Disease: No Hosp/Surgery: Yes Autoimmune Disorder: No Anesthetic Complications: No Kidney Disease: No Abnormal Pap Smear: No Neuro/Epilepsy: No Psychiatric Disorders: No Other Medical Diseases: No Hepatitis/Liver Disease: No Significant Family History: No Varicosities/Phlebitis: No Trauma/Violence : No Thyroid Dysfunction: No Medical History Comments: Childbirth INFECTIOUS HISTORY Gonorrhea: No Genital Herpes: No Chlamydia: Yes Tuberculosis: No Syphilis: No Hepatitis: No HIV/AIDS Exposure: No Rash or Viral Illness: No HPV: No Infectious History Comments: 2011 chlamydia PHYSICAL EXAM General: Normal HEENT: Normal Neurologic: Normal Thyroid: Normal Heart: Normal Lungs: Normal Breast: Deferred Back: Normal Abdomen: Normal Genitourinary Exam: Normal Extremities: Normal DTRs: Normal Pelvic Type: Adequate Physical Exam Comments: Care at [facility], non compliant with care Closely spaced Late to care @ 18+6 B + Vital Signs: Reviewed VAGINAL EXAM Dilatation: 8 Station: -1 MEMBRANES Amniotic Fluid Color: Clear FETUS A Monitoring: External US FHR- Baseline: 130 Variability: Moderate 6-25bpm Accelerations: 15X15 Decelerations: Variable FHR Category: Category I Admit Comment: Admitted to LD in active labor, sporadic PNC, GBS unknown. Cat 1 strip with variables, uc's q 5 min, anticipate PLANS FOR LABOR AND DELIVERY Labor and Delivery: None Pain Management: Epidural Feeding Preference: Breast Benefit of Breast Feed Discussed: Yes Circumcision: N/A INFORMED CONSENT Informed Consent Obtained: Vaginal Delivery Assignment: Yareli Colón MD Signature: with User ID: [email or web address] : with User ID: [email or web address]
[2017-03-29] MEDS ORDERED: PENICILLIN G POTASSIUM 2,500,000 UNIT in DEXTROSE 5%-WATER 50 ML IV SCH (13:09)
[2017-03-29] MEDS: IBUPROFEN 800 MG TABLET PO SCH ×2 (14:05→21:12)
[2017-03-29] MEDS: ACETAMINOPHEN WITH CODEINE #3 TABLET PO PRN ×2 (16:16→22:36)
[2017-03-29] MEDS: FERROUS SULFATE 325 MG TABLET PO SCH (18:24)
[2017-03-29] MEDS: DOCUSATE SODIUM 100 MG CAPSULE PO SCH (18:24)
[2017-03-29] MEDS: FAMOTIDINE 20 MG TABLET PO SCH (21:12)
[2017-03-30] MEDS: ACETAMINOPHEN WITH CODEINE #3 TABLET PO PRN ×3 (03:24→16:51)
[2017-03-30] MEDS: IBUPROFEN 800 MG TABLET PO SCH ×3 (06:19→22:06)
[2017-03-30 07:37] LABS: HEMOGLOBIN 10.1 g/dL (12.0-15.5); HGB HCT DIFFERENCE -0.7; MEAN CORPUSCULAR HEMOGLOBIN 26.2 pg (27.0-33.4); MEAN CORPUSCULAR HGB CONC 32.6 g/dL (32.0-36.0); MEAN CORPUSCULAR VOLUME 80 fl (80-97); RED BLOOD COUNT 3.85 10^6/uL (3.72-5.28); WHITE BLOOD COUNT 11.9 10^3/uL (4.0-10.5)
--- NOTE | 2017-03-30 09:33 | PDOC PROGRESS REPORT ---
Subjective-OB Subjective: Post Delivery Day: 26 year old. Denies any needs at this time. Pt doing well, no complaints. Reports light bleeding, regular diet and voiding without difficulty. Physical Exam (OB) Vital Signs: Temp Pulse Resp BP Pulse Ox 97.9 F 52 L 14 117/72 100 03/30/17 08:00 03/30/17 08:00 03/30/17 08:00 03/30/17 08:00 03/30/17 08:00 Intake & Output 03/29/17 03/30/17 03/31/17 06:59 06:59 06:59 Weight 71.4 kg - Lochia Lochia Amount: Small 10-25 ml Lochia Color: Rubra/Red - Abdomen Description: Soft, Round Hernia Present: No Fundal Description: Firm, Midline Fundal Height: u/u - u/2 Objective-Diagnostic Laboratory: 03/30/17 07:21 03/29/17 03/29/17 03/29/17 08:36 09:40 09:40 WBC 7.5 RBC 3.57 L Hgb 9.5 L Hct 28.5 L MCV 80 MCH 26.6 L MCHC 33.3 RDW 15.9 H Plt Count 165 Seg Neutrophils % 62.8 Lymphocytes % 27.6 Monocytes % 8.5 Eosinophils % 0.7 Basophils % 0.4 Absolute Neutrophils 4.7 Absolute Lymphocytes 2.1 Absolute Monocytes 0.6 Absolute Eosinophils 0.0 Absolute Basophils 0.0 Urine Color YELLOW Urine Appearance CLOUDY Urine pH 6.0 Ur Specific Orient 1.011 Urine Protein NEGATIVE Urine Glucose (UA) NEGATIVE Urine Ketones NEGATIVE Urine Blood NEGATIVE Urine Nitrite NEGATIVE Ur Leukocyte Esterase LARGE H Blood Type B POSITIVE Antibody Screen NEGATIVE 03/30/17 07:21 WBC 11.9 H RBC 3.85 Hgb 10.1 L Hct 31.0 L MCV 80 MCH 26.2 L MCHC 32.6 RDW 16.0 H Plt Count 169 Seg Neutrophils % Lymphocytes % Monocytes % Eosinophils % Basophils % Absolute Neutrophils Absolute Lymphocytes Absolute Monocytes Absolute Eosinophils Absolute Basophils Urine Color Urine Appearance Urine pH Ur Specific Orient Urine Protein Urine Glucose (UA) Urine Ketones Urine Blood Urine Nitrite Ur Leukocyte Esterase Blood Type Antibody Screen Assessment and Plan(PN) - Assessment and Plan (1) Limited care Qualifiers: Trimester: first trimester Qualified Code(s): O09.31 - Supervision of with insufficient care, first trimester Is this a current diagnosis for this admission?: Yes (2) Normal vaginal delivery Is this a current diagnosis for this admission?: Yes - Time Spent with Patient Time with patient: Less than 15 minutes Medications reviewed and adjusted accordingly: Yes - Disposition Anticipated Discharge: Home Within: within 24 hours
[2017-03-30] MEDS ORDERED: SENNOSIDES/DOCUSATE 8.6-50 MG 1 EACH TABLET PO SCH (10:00)
[2017-03-30] MEDS ORDERED: PRENATAL VITAMIN W DHA CAPSULE PO SCH (10:00)
[2017-03-30] MEDS ORDERED: SENNOSIDES/DOCUSATE 8.6-50 MG 1 EACH TABLET PO ONE (11:00)
[2017-03-30] MEDS ORDERED: PRENATAL VITAMIN W DHA CAPSULE PO ONE (11:00)
[2017-03-30] MEDS: FERROUS SULFATE 325 MG TABLET PO SCH ×2 (11:02→18:22)
[2017-03-30] MEDS: FAMOTIDINE 20 MG TABLET PO SCH ×2 (11:03→22:06)
[2017-03-30] MEDS: DOCUSATE SODIUM 100 MG CAPSULE PO SCH ×2 (11:03→18:22)
[2017-03-31] MEDS: ACETAMINOPHEN WITH CODEINE #3 TABLET PO PRN ×2 (01:44→10:09)
[2017-03-31] MEDS: IBUPROFEN 800 MG TABLET PO SCH (06:17)
[2017-03-31 08:26] VITALS: BP 118/65
--- NOTE | 2017-03-31 09:06 | PDOC PROGRESS REPORT ---
Subjective-OB Subjective: Post Delivery Day: 26 year old. Denies any needs at this time. Ready for discharge. Physical Exam (OB) Vital Signs: Temp Pulse Resp BP Pulse Ox 98.2 F 66 15 118/65 99 03/31/17 07:40 03/31/17 07:40 03/31/17 07:40 03/31/17 07:40 03/31/17 07:40 Intake & Output 03/30/17 03/31/17 04/01/17 06:59 06:59 06:59 Intake Total 560 Balance 560 Weight 71.4 kg - PIH/Pre-Eclampsia DTR's: 2 + Clonus: Negative Headache: Absent Epigastric Pain: No Visual Changes: No - Lochia Lochia Amount: Scant < 10 ml Lochia Color: Rubra/Red - Abdomen Description: Soft, Round Hernia Present: No Bowel Sounds: Normoactive Flatus Presence: Present Stool: No Fundal Description: Firm, Midline Fundal Height: u/u - u/2 Objective-Diagnostic Laboratory: 03/30/17 07:21 Assessment and Plan(PN) - Time Spent with Patient Medications reviewed and adjusted accordingly: Yes - Disposition Anticipated Discharge: Home
--- NOTE | 2017-03-31 09:15 | PDOC DISCHARGE SUMMARY ---
Final Diagnosis Discharge Date: 03/31/17 - Final Diagnosis (1) Anemia Is this a current diagnosis for this admission?: Yes (2) Limited care Is this a current diagnosis for this admission?: Yes (3) Normal vaginal delivery Is this a current diagnosis for this admission?: Yes (4) Short interval between pregnancies affecting , antepartum Is this a current diagnosis for this admission?: Yes (5) Abdominal pain Is this a current diagnosis for this admission?: Yes Discharge Data - Discharge Medication Home Medications: Pnv95/Iron Fum/Folic Acid [ Caplet] 1 tab PO DAILY 06/28/15 Butalb/Acetaminophen/Caffeine [Fioricet (50-325-40 mg) Tablet] 1 tab PO Q6 PRN 03/28/17 Acetaminophen with Codeine [Tylenol #3 Tablet] 1 each PO Q4HP PRN #20 tablet 11/08 Ferrous Sulfate [Feosol 325 mg Tablet] 325 mg PO DAILY #30 tablet 03/31/17 Gestational Age: 37.6 wks Reason(s) for Admission: Onset of Labor Procedures: Ultrasound Intrapartum Procedure(s): Spontaneous Vaginal Delivery - Data Baby 1 Male at 1 minute: 9 at 5 minutes: 9 Weight: 2.778 kg Home with Mother: Yes Complications: No - Diagnosis Test Laboratory: Temp Pulse Resp BP Pulse Ox 98.2 F 66 15 118/65 99 03/31/17 07:40 03/31/17 07:40 03/31/17 07:40 03/31/17 07:40 03/31/17 07:40 03/29/17 03/29/17 03/30/17 08:36 09:40 07:21 RBC 3.57 L 3.85 Hgb 9.5 L 10.1 L Hct 28.5 L 31.0 L Urine Opiates Screen Cancelled - Discharge information/Instructions Discharge Activity: Activity As Tolerated, Balance Activity w/Rest, Pelvic Rest , Slowly Increase Activity, No tub bath Discharge Diet: Regular Disposition: HOME, SELF-CARE Follow up with: [facility] in: 4, Weeks
[2017-03-31] MEDS ORDERED: PRENATAL VITAMIN W DHA CAPSULE PO SCH (10:00)
[2017-03-31] MEDS ORDERED: SENNOSIDES/DOCUSATE 8.6-50 MG 1 EACH TABLET PO SCH (10:00)
[2017-03-31] MEDS: FAMOTIDINE 20 MG TABLET PO SCH (10:09)
[2017-03-31] MEDS: FERROUS SULFATE 325 MG TABLET PO SCH (10:09)
[2017-03-31] MEDS: DOCUSATE SODIUM 100 MG CAPSULE PO SCH (10:09)
== END 2017-03-31 11:30 | disposition home or self-care (01) | DRG 775 ==
LOC: LC 08:29 → LR 08:58 → 2S 12:31
PROVIDERS: ADMIT Obstetrics & Gynecology; ATTEND Obstetrics & Gynecology
PROC: 10E0XZZ Delivery of Products of Conception, External Approach (ICD-10-PCS; principal; 2017-03-29)
PROC: 4A1HXCZ Monitoring of Products of Conception, Cardiac Rate, External Approach (ICD-10-PCS; 2017-03-29)
DX: O76 Abnormality in fetal heart rate and rhythm complicating labor and delivery (principal); O62.3 Precipitate labor; O69.81X0 Labor and delivery complicated by cord around neck, without compression, not applicable or unspecified; O99.02 Anemia complicating childbirth; D64.9 Anemia, unspecified; Z3A.37 37 weeks gestation of pregnancy; Z37.0 Single live birth; Z91.19 Patient's noncompliance with other medical treatment and regimen
CPT/HCPCS: 36415; 81005; 83036; 85025; 85027; 86592; 86701; 86850; 86900; 86901; 88307; J2540; J2590; J3490

== ENCOUNTER 2017-06-04 14:41 | Emergency (ER) | payer MEDICAID ==
[2017-06-04] MEDS ORDERED: ASPIRIN 81 MG TABLET, CHEWABLE PO ONE (15:41)
--- NOTE | 2017-06-04 15:44 | ER Document Report ---
ED Medical Screen (RME) - General Chief Complaint: Chest Pain > 30 Stated Complaint: CHEST PAIN Time Seen by Provider: 06/04/17 15:40 Mode of Arrival: Ambulatory Information source: Patient TRAVEL OUTSIDE OF THE [place] IN LAST 30 DAYS: No - HPI Patient complains to provider of: cp Onset: This morning - pt with c/o L-sided Cp started earlier today- hurts when she takes a deep breath. Did not take ASA today - Related Data Allergies/Adverse Reactions: No Known Allergies Allergy (Verified 06/04/17 14:41) Past Medical History - Social History Chew tobacco use (# tins/day): No Frequency of alcohol use: Rare Drug Abuse: None Endocrine Medical History: Denies: Hx Diabetes Mellitus Type 1, Hx Diabetes Mellitus Type 2 Renal/ Medical History: Denies: Hx Kidney Stones, Hx Peritoneal Dialysis - Immunizations Immunizations up to date: Yes Hx Diphtheria, Pertussis, Tetanus Vaccination: Yes - 2015 History of Influenza Vaccine for 01/2017 - 06/2017 Season: No Physical Exam - Vital signs Vitals: Temp Pulse Resp BP Pulse Ox 98.8 F 112 H 16 121/83 98 06/04/17 14:58 06/04/17 14:58 06/04/17 14:58 06/04/17 14:58 06/04/17 14:58 Course - Vital Signs Vital signs: Temp Pulse Resp BP Pulse Ox 98.8 F 112 H 16 121/83 98 06/04/17 14:58 06/04/17 14:58 06/04/17 14:58 06/04/17 14:58 06/04/17 14:58
[2017-06-04 16:17] LABS: ABSOLUTE EOSINOPHILS # (AUTO) 0.1 10^3/uL (0.0-0.6); ABSOLUTE LYMPHOCYTES (AUTO) 3.1 10^3/uL (0.5-4.7); ABSOLUTE MONOCYTES (AUTO) 0.5 10^3/uL (0.1-1.4); ABSOLUTE NEUT (AUTO) 2.4 10^3/uL (1.7-8.2); BASOPHILS % (AUTO) 0.3 % (0-2); EOSINOPHILS % (AUTO) 1.1 % (0-6); HEMATOCRIT 37.4 % (36.0-47.0); LYMPHOCYTES % (AUTO) 51.7 % (13-45); MEAN CORPUSCULAR HEMOGLOBIN 27.4 pg (27.0-33.4); MEAN CORPUSCULAR HGB CONC 32.1 g/dL (32.0-36.0); MEAN CORPUSCULAR VOLUME 85 fl (80-97); MONOCYTES % (AUTO) 7.5 % (3-13); PLATELET COUNT 301 10^3/uL (150-450); RED BLOOD COUNT 4.39 10^6/uL (3.72-5.28); SEGMENTED NEUTROPHILS % (AUTO) 39.4 % (42-78); TOTAL CELLS COUNTED % (AUTO) 100 %; WHITE BLOOD COUNT 6.1 10^3/uL (4.0-10.5)
[2017-06-04 16:28] LABS: APPEARANCE,URINE CLEAR; BILIRUBIN,URINE NEGATIVE (NEGATIVE); COLOR,URINE YELLOW; GLUCOSE, URINE NEGATIVE (NEGATIVE); KETONES,URINE NEGATIVE (NEGATIVE); LEUKOCYTE ESTERASE,URINE NEGATIVE (NEGATIVE); NITRITE,URINE NEGATIVE (NEGATIVE); PROTEIN,URINE NEGATIVE (NEGATIVE); URINE SPECIFIC GRAVITY 1.016
[2017-06-04 16:34] LABS: ALANINE AMINOTRANSFERASE 19 U/L (9-52); ALBUMIN 4.2 g/dL (3.5-5.0); ALKALINE PHOSPHATASE 97 U/L (38-126); ANION GAP 11 (5-19); ASPARTATE AMINO TRANSFERASE 19 U/L (14-36); BILIRUBIN,DIRECT 0.4 mg/dL (0.0-0.4); BILIRUBIN,TOTAL 0.4 mg/dL (0.2-1.3); BLOOD UREA NITROGEN 8 mg/dL (7-20); CALCIUM 10.2 mg/dL (8.4-10.2); CARBON DIOXIDE 27 mmol/L (22-30); CHLORIDE 105 mmol/L (98-107); CREATINE KINASE 125 U/L (30-135); GLUCOSE 77 mg/dL (75-110); POTASSIUM 4.6 mmol/L (3.6-5.0); SODIUM 143.4 mmol/L (137-145); TOTAL PROTEIN 7.2 g/dL (6.3-8.2)
[2017-06-04 16:46] LABS: CREATINE KINASE MB 0.66 ng/mL (<4.55)
[2017-06-04 16:47] LABS: TROPONIN I < 0.012 ng/mL
--- NOTE | 2017-06-04 16:53 | RADIOLOGY REPORT (SQ) ---
EXAM DESCRIPTION: CHEST PA/LAT COMPLETED DATE/TIME: 06/04/2017 4:44 pm REASON FOR STUDY: cp COMPARISON: 04/11/2014 EXAM PARAMETERS: NUMBER OF VIEWS: two views TECHNIQUE: Digital Frontal and Lateral radiographic views of the chest acquired. RADIATION DOSE: NA LIMITATIONS: none FINDINGS: LUNGS AND PLEURA: No opacities, masses or pneumothorax. No pleural effusion. MEDIASTINUM AND HILAR STRUCTURES: No masses or contour abnormalities. HEART AND VASCULAR STRUCTURES: Heart normal size. No evidence for failure. BONES: No acute findings. HARDWARE: None in the chest. OTHER: No other significant finding. IMPRESSION: NO SIGNIFICANT RADIOGRAPHIC FINDING IN THE CHEST. TECHNICAL DOCUMENTATION: JOB ID: [id number] [employer]- All Rights Reserved
[2017-06-04] MEDS ORDERED: LIDOCAINE 5% (700 MG) TRANSDERMAL ADH..PATCH TP ONE (19:12)
[2017-06-04] MEDS ORDERED: LORAZEPAM 1 MG TABLET PO ONE (19:12)
[2017-06-04] MEDS ORDERED: ACETAMINOPHEN 325 MG TABLET PO ONE (19:12)
[2017-06-04] MEDS ORDERED: ACETAMINOPHEN 325 MG TABLET ONE (19:21)
--- NOTE | 2017-06-04 19:28 | ER Document Report ---
ED General - General Chief Complaint: Chest Pain > 30 Stated Complaint: CHEST PAIN Time Seen by Provider: 06/04/17 15:40 Mode of Arrival: Ambulatory Notes: Patient is a 26-year-old female without past medical history who presents with 2 days of chest wall pain. Patient describes it as a stabbing, constant pain that is worsened by movement, coughing or taking a deep breath. No radiation of the pain. Nothing improves the pain. Symptoms have been overall unchanged since onset. She denies a history of similar symptoms in the past. She denies any shortness of breath, hemoptysis, fever, unilateral leg swelling, syncope, weakness or numbness. She denies any history of DVT or pulmonary embolus. She is not currently and has never been on chemotherapy. No history of clotting disorders. She does not use estrogen of any kind. She has not seen her primary care doctor regarding today's concerns. TRAVEL OUTSIDE OF THE [place] IN LAST 30 DAYS: No - Related Data Allergies/Adverse Reactions: No Known Allergies Allergy (Verified 06/04/17 14:41) Past Medical History - General Information source: Patient - Social History Smoking Status: Never Smoker Chew tobacco use (# tins/day): No Frequency of alcohol use: Rare Drug Abuse: None Lives with: Spouse/Significant other Family History: Reviewed & Not Pertinent, Hypertension, Malignancy Patient has suicidal ideation: No Patient has homicidal ideation: No Endocrine Medical History: Denies: Hx Diabetes Mellitus Type 1, Hx Diabetes Mellitus Type 2 Renal/ Medical History: Denies: Hx Kidney Stones, Hx Peritoneal Dialysis - Immunizations Immunizations up to date: Yes Hx Diphtheria, Pertussis, Tetanus Vaccination: Yes - 2015 Review of Systems - Review of Systems Notes: Constitutional: Negative for fever. HENT: Negative for sore throat. Eyes: Negative for visual changes. Cardiovascular: Positive for chest pain. Respiratory: Negative for shortness of breath. Gastrointestinal: Negative for abdominal pain, vomiting or diarrhea. Genitourinary: Negative for dysuria. Musculoskeletal: Negative for back pain. Skin: Negative for rash. Neurological: Negative for headaches, weakness or numbness. 10 point ROS negative except as marked above and in HPI. Physical Exam - Vital signs Vitals: Temp Pulse Resp BP Pulse Ox 98.8 F 112 H 16 121/83 98 06/04/17 14:58 06/04/17 14:58 06/04/17 14:58 06/04/17 14:58 06/04/17 14:58 Interpretation: Tachycardic - Resolved at the time of my assessment Notes: PHYSICAL EXAMINATION: GENERAL: Well-appearing, well-nourished and in no acute distress. HEAD: Atraumatic, normocephalic. EYES: Pupils equal round and reactive to light, extraocular movements intact, sclera anicteric, conjunctiva are normal. ENT: nares patent, oropharynx clear without exudates. Moist mucous membranes. NECK: Normal range of motion, supple without lymphadenopathy LUNGS: Breath sounds clear to auscultation bilaterally and equal. No wheezes rales or rhonchi. HEART: Regular rate and rhythm without murmurs ABDOMEN: Soft, nontender, normoactive bowel sounds. No guarding, no rebound. No masses appreciated. EXTREMITIES: Normal range of motion, no pitting or edema. No cyanosis. NEUROLOGICAL: No focal neurological deficits. Moves all extremities spontaneously and on command. PSYCH: Normal mood, normal affect. SKIN: Warm, Dry, normal turgor, no rashes or lesions noted. Course - Re-evaluation Re-evalutation: 06/04/17 19:29 Presentation of chest pain in an otherwise well appearing patient. Low clinical suspicion for ACS given clinical history, exam, EKG without ST elevations or depressions, and negative troponin. HEART score less than or equal to 3. PE was elevated on the differential due to patient's clinical history and elevated heart rate. However, d-dimer was sent and is normal effectively excluding this diagnosis as I overall have very low clinical suspicion based on a negative d- dimer and improvement of her symptoms with treatment of likely musculoskeletal origin of her pain. I will not proceed with CT of the chest. CXR without evidence of pneumothorax or pneumonia. No widened mediastinum. Aortic dissection also seems unlikely given history, symmetric pulses, CXR, and vitals. At this time will discharge with return precautions and follow-up recommendations. Verbal discharge instructions given a the bedside and opportunity for questions given. Medication warnings reviewed. Patient is in agreement with this plan and has verbalized understanding of return precautions and the need for primary care follow-up in the next 24-72 hours. - Vital Signs Vital signs: Temp Pulse Resp BP Pulse Ox 98.0 F 64 16 118/63 99 06/04/17 19:44 06/04/17 19:44 06/04/17 19:44 06/04/17 19:44 06/04/17 19:44 - Laboratory Result Diagrams: 06/04/17 15:48 06/04/17 15:48 Laboratory results interpreted by me: 06/04/17 06/04/17 15:48 16:03 RDW 20.0 H Seg Neutrophils % 39.4 L Lymphocytes % 51.7 H Urine Blood SMALL H Urine Urobilinogen 2.0 H - Diagnostic Test Radiology reviewed: Image reviewed, Reports reviewed Radiology results interpreted by me: 06/04/17 19:30 Chest x-ray: No acute infiltrate or pneumothorax - EKG Interpretation by Me Additional EKG results interpreted by me: 06/04/17 19:30 Sinus rhythm. Rate 61. No ST elevations or depressions. QTC is 431. Discharge - Discharge Clinical Impression: Chest wall pain, Tachycardia Condition: Good Disposition: HOME, SELF-CARE Additional Instructions: You were seen today for chest pain. The exact cause of your pain is unclear. However, based on your cardiac enzyme testing, chest x-ray, and EKG it does not appear that it is from an immediately life-threatening cause at this time. Please return to emergency department immediately if you have worsening of your chest pain, shortness of breath, vomiting, become unable to exert yourself due to pain or difficulty breathing, you pass out, or have any pain that radiates into your arms, jaw, or back. Please also return if you have any additional symptoms that are concerning to you.
[2017-06-04 19:48] VITALS: BP 118/63
--- NOTE | 2017-06-05 09:08 | EKG REPORT ---
SEVERITY:- NORMAL ECG - SINUS RHYTHM : Confirmed by: Xavier James 05-Jun-2017 09:07:42
== END 2017-06-04 19:48 | disposition home or self-care (01) ==
LOC: ER 14:41
DX: R07.89 Other chest pain (principal); R00.0 Tachycardia, unspecified
CPT/HCPCS: 93005; 99285; 36415; 82553; 82550; 85025; 81025; 80053; 81001; 84484; 85379; 71046; 93010; J3490 ×2

== ENCOUNTER 2017-08-23 15:26 | Emergency (ER) | payer MEDICAID ==
--- NOTE | 2017-08-23 15:37 | ER Document Report ---
HPI - HPI Patient complains to provider of: irritated , itching, increased discharge vagina Onset: Other - 1.5 weeks Onset/Duration: Persistent Pain Level: Denies Context: 27 yo female with increased discharge that is causing itchy, irritation to labia for 1.5 weeks . No hx herpes, or GX. Chlamydia tx 2011. Sex partner with no symptoms. No dusuria. No nv/d/. No pelvice pain. No fever or chills. No creams. Wore shorts that were too tight, after she got home felt really irritated-1.5 weeks ago. Labia was swollen at first, but now just itchy. Associated Symptoms: None Exacerbated by: Denies Relieved by: Denies - ROS ROS below otherwise negative: Yes Systems Reviewed and Negative: Yes All other systems reviewed and negative - REPRODUCTIVE LMP: 3 weeks ago Reproductive: REPORTS: : Past Medical History - General Information source: Patient - Social History Smoking Status: Never Smoker Frequency of alcohol use: None Drug Abuse: None Lives with: Family Family History: Reviewed & Not Pertinent, Hypertension, Malignancy - Medical History Medical History: Negative Surgical Hx: Negative - Immunizations Immunizations up to date: Yes Hx Diphtheria, Pertussis, Tetanus Vaccination: Yes - 2016 Vertical Provider Document - CONSTITUTIONAL Agree With Documented VS: Yes Exam Limitations: No Limitations General Appearance: No Apparent Distress - INFECTION CONTROL TRAVEL OUTSIDE OF THE [place] IN LAST 30 DAYS: No - HEENT HEENT: Normocephalic - NECK Neck: Supple - GI/ABDOMEN Gastrointestinal: Abdomen Soft, Abdomen Non-Tender, No Organomegaly - REPRODUCTIVE Notes: inflamed vulva, no swelling or lesions - BACK Back: Normal Inspection. negative: CVA Tenderness-Right, CVA Tenderness-Left - MUSCULOSKELETAL/EXTREMETIES Musculoskeletal/Extremeties: MAEW - NEURO Level of Consciousness: Awake, Alert - DERM Integumentary: Warm, Dry Course - Re-evaluation Re-evalutation: 08/24/17 11:00 gc and chlamydia are negative. pt did not call me back for results last night as instructed. Discharge - Discharge Clinical Impression: Yeast vaginitis, Bacterial vaginosis Condition: Good Disposition: HOME, SELF-CARE Instructions: Metronidazole ([facility]), Topical Antifungal ([facility]), Vaginal Yeast Infection ([facility]), Vaginosis, Bacterial ([facility]) Additional Instructions: no douching diflucan once 150mg for yeast vaginitis topical monistat to irritated vulva tissue see your doctor for follow up if worse call me in 3 hours for the STD cultures results [phone] Prescriptions: Fluconazole [Diflucan] 150 mg PO ONCE PRN #1 tablet PRN Reason: Metronidazole [Flagyl 500 mg Tablet] 500 mg PO BID #14 tablet Forms: Return to Work
[2017-08-23 15:50] VITALS: BP 142/84
[2017-08-23 16:03] LABS: T.VAGINALIS (WET MOUNT) NO TRICHOMONAS SEEN
[2017-08-23 16:04] LABS: BACTERIA (WET MOUNT) 4+ BACTERIA SEEN; EPITHELIALS (WET MOUNT) 3+ EPITHELIALS SEEN; WBCS (WET MOUNT) 1+ WBCS SEEN; YEAST (WET MOUNT) BUDDING YEAST SEEN
[2017-08-23 16:07] LABS: APPEARANCE,URINE SLIGHTLY-CLOUDY; BILIRUBIN,URINE NEGATIVE (NEGATIVE); COLOR,URINE YELLOW; GLUCOSE, URINE NEGATIVE (NEGATIVE); KETONES,URINE NEGATIVE (NEGATIVE); LEUKOCYTE ESTERASE,URINE NEGATIVE (NEGATIVE); NITRITE,URINE NEGATIVE (NEGATIVE); PROTEIN,URINE NEGATIVE (NEGATIVE); URINE SPECIFIC GRAVITY 1.021
[2017-08-23 17:45] LABS: CHLAM PCR NOT DETECTED (NOT DETECT); GON PCR NOT DETECTED (NOT DETECT)
== END 2017-08-23 16:38 | disposition home or self-care (01) ==
LOC: ER 15:26
DX: O23.599 Infection of other part of genital tract in pregnancy, unspecified trimester (principal); B96.89 Other specified bacterial agents as the cause of diseases classified elsewhere; O98.819 Other maternal infectious and parasitic diseases complicating pregnancy, unspecified trimester; B37.3 Candidiasis of vulva and vagina; Z3A.00 Weeks of gestation of pregnancy not specified
CPT/HCPCS: 81001; 81025; 87210; 87491; 87591; 99283

== ENCOUNTER 2017-09-01 15:40 | Emergency (ER) | payer SELFPAY ==
[2017-09-01 15:48] VITALS: BP 133/86
--- NOTE | 2017-09-01 16:17 | RADIOLOGY REPORT (SQ) ---
EXAM DESCRIPTION: KNEE LEFT 4 VIEW COMPLETED DATE/TIME: 09/01/2017 4:09 pm REASON FOR STUDY: pain COMPARISON: None. NUMBER OF VIEWS: Four views. TECHNIQUE: AP, lateral, and both oblique radiographic images acquired of the left knee. LIMITATIONS: None. FINDINGS: MINERALIZATION: Normal. BONES: No acute fracture or dislocation. No worrisome bone lesions. No significant osteophytes. JOINT: No effusion. No chondrocalcinosis. OTHER: No other significant finding. IMPRESSION: NEGATIVE STUDY OF THE LEFT KNEE. NO EXPLANATION FOR PAIN. TECHNICAL DOCUMENTATION: JOB ID: [id number] [employer] All Rights Reserved Reading location - IP/workstation name: [email or web address]
[2017-09-01] MEDS ORDERED: IBUPROFEN 600 MG TABLET PO ONE (16:22)
--- NOTE | 2017-09-01 16:27 | ER Document Report ---
ED Extremity Problem, Lower - General Chief Complaint: Knee Pain Stated Complaint: LEFT KNEE PAIN Time Seen by Provider: 09/01/17 15:55 Mode of Arrival: Ambulatory Information source: Patient TRAVEL OUTSIDE OF THE [place] IN LAST 30 DAYS: No - HPI Patient complains to provider of: Pain Location: Knee Notes: Patient is here with complaints of left knee pain. She states that her daughter hugged her left knee a few days ago and she felt like her knee may have popped out of place and then pop back in. States that it was somewhat swollen and seemed to get better and now it is swollen and painful again. No traumatic falls or significant injuries. No redness. No fever. No numbness, tingling, weakness. No nausea, vomiting, diarrhea. Pain is worse with walking specifically when she flexes or hyperextends her knee. Seems to be better when she is resting. No nausea, vomiting, diarrhea. No chest pain or shortness of breath. No other complaints at this time. - Related Data Allergies/Adverse Reactions: No Known Allergies Allergy (Verified 08/23/17 15:27) Past Medical History - Social History Smoking Status: Never Smoker Family History: Reviewed & Not Pertinent, Hypertension, Malignancy Endocrine Medical History: Denies: Hx Diabetes Mellitus Type 1, Hx Diabetes Mellitus Type 2 Renal/ Medical History: Denies: Hx Kidney Stones, Hx Peritoneal Dialysis - Immunizations Immunizations up to date: Yes Hx Diphtheria, Pertussis, Tetanus Vaccination: Yes - 2015 Review of Systems - Review of Systems -: Yes All other systems reviewed and negative Physical Exam - Vital signs Vitals: Temp Pulse Resp BP Pulse Ox 97.7 F 72 16 133/86 H 98 09/01/17 15:46 09/01/17 15:46 09/01/17 15:46 09/01/17 15:46 09/01/17 15:46 - Notes Notes: GENERAL: alert, cooperative, nontoxic, no distress. HEAD: normocephalic, atraumatic EYES: conjunctiva pink without discharge, no external redness or swelling. EARS: no external swelling, no external redness NOSE: atraumatic, no external swelling MOUTH/THROAT: mucous membranes moist and pink NECK: soft, supple, full range of motion, no meningismus. CHEST: no distress, lungs clear and equal throughout. No wheezing, rales, rhonchi. CARDIAC: regular rate and rhythm, no murmur, normal capillary refill, normal pulses. BACK: full range of motion, no CVA tenderness. EXTREMITIES: full range of motion of all extremities. No redness, no swelling. Mild tenderness palpation of the left anterior knee. No ligament instability. No redness. Normal pulse and sensation distally. NEURO: alert and oriented 3, no focal deficits, full range of motion of all extremities. PYSCH: appropriate mood, affect. Patient is cooperative. SKIN: pink, warm, dry, no rash. Course - Re-evaluation Re-evalutation: 09/01/17 16:24 Patient is nontoxic appearing with stable vitals. She is here with complaints of left knee pain. She states that her daughter hugged her around her leg and she felt like her knee may have popped out of place and then back in place a few days ago and still continues to be painful and slightly swollen. No fever. On exam there is no significant swelling, no redness, no signs of infection. She is afebrile. No ligament instability. Normal neurovascular exam distally. X-ray shows no acute abnormality. Patient be placed in an Jeremias wrap. Discharged home with a prescription for Naprosyn. Instructions to rest, ice, elevate. Follow-up with her primary care doctor or orthopedics if her pain persists in 1 week, sooner for worsening pain, fever, redness, numbness, tingling, weakness, any further concerns. The patient is noted to have elevated blood pressure during today's emergency department visit. The patient was informed of this finding. The patient was instructed that this may be related to pre-hypertension and requires further evaluation with a primary care provider. The patient has no hypertensive symptoms at this time. The patient's emergency department workup and current diagnosis were explained to the patient and or family. Follow-up instructions were provided. Medications if prescribed were discussed. Instructions for when to return to the emergency department including specific worrisome symptoms were discussed with the patient and/or family. - Vital Signs Vital signs: Temp Pulse Resp BP Pulse Ox 97.7 F 72 16 133/86 H 98 09/01/17 15:46 09/01/17 15:46 09/01/17 15:46 09/01/17 15:46 09/01/17 15:46 - Diagnostic Test Radiology reviewed: Image reviewed, Reports reviewed - Negative left knee Procedures - Immobilization left knee Pre-Proc Neuro Vasc Exam: Normal Immobilizer type: Jeremias wrap Performed by: PCT Post-Proc Neuro Vasc Exam: Normal Alignment checked and good: Yes Discharge - Discharge Clinical Impression: Left knee sprain Qualifiers: Encounter type: initial encounter Involved ligament of knee: unspecified ligament Qualified Code(s): S83.92XA - Sprain of unspecified site of left knee, initial encounter Condition: Stable Disposition: HOME, SELF-CARE Instructions: Sprained Knee ([facility]), Ice & Elevation ([facility]) Additional Instructions: Take medications as prescribed. You may also take Tylenol as needed for pain. Wear Jeremias wrap as needed for comfort. Rest, ice, elevate. Follow-up if not better in 1 week, sooner for worsening pain, fever, numbness, tingling, weakness , redness, any further concerns. Your blood pressure was elevated during today's visit. Have this rechecked with your doctor. Prescriptions: Naproxen [Naprosyn] 500 mg PO BID #20 tablet Forms: Elevated Blood Pressure, Smoking Cessation Education Referrals: BENITO PERAZA MD [ACTIVE STAFF] - Follow up as needed
== END 2017-09-01 16:34 | disposition home or self-care (01) ==
LOC: ER 15:40
DX: S83.92XA Sprain of unspecified site of left knee, initial encounter (principal); X58.XXXA Exposure to other specified factors, initial encounter
CPT/HCPCS: 99283